=== PATIENT | male | born 1945 | race Caucasian/White ===

== ENCOUNTER 2017-10-31 10:04 | Day surgery (SDC) | payer OTHER ==
[~2017-10-31] VITALS: Ht 188 cm; Wt 72.6 kg
== END 2017-10-31 12:42 | disposition home or self-care (01) ==
LOC: ORSCSDS 10:04
PROVIDERS: Internal Medicine Gastroenterology
PROC: 0DBH8ZX Excision of Cecum, Via Natural or Artificial Opening Endoscopic, Diagnostic (ICD-10-PCS; principal; 2017-10-31 11:15)
DX: Z12.11 Encounter for screening for malignant neoplasm of colon (principal); D12.0 Benign neoplasm of cecum; K57.30 Diverticulosis of large intestine without perforation or abscess without bleeding; Z86.010 Personal history of colon polyps; F17.210 Nicotine dependence, cigarettes, uncomplicated
CPT/HCPCS: 88305; 93005; 93010; J7120

== ENCOUNTER → 2020-05-27 | Outpatient (CLI) | payer OTHER | END | disposition home or self-care (01) | LOC: LAB SHORT 11:25 → PLD 11:25 | DX: C44.311 Basal cell carcinoma of skin of nose (principal); L91.0 Hypertrophic scar | CPT/HCPCS: 88305 ==

== ENCOUNTER 2022-05-21 18:58 | Inpatient (IN) | payer OTHER ==
[~2022-05-21] VITALS: Ht 188 cm; Wt 65.0 kg
[2022-05-21 19:50] LABS: Source, Urine Clean Catch
[2022-05-21 19:56] LABS: Appearance, Urine Clear (Clear); Bilirubin, Urine Neg (Neg); Blood, Urine 2+ (Neg); Color, Urine Amber (P-Yellow); Glucose Qualitative, Urine Neg (Neg); Ketones, Urine 3+ (Neg); Leukocyte Esterase, Urine 1+ (Neg); Nitrite, Urine Pos (Neg); Protein, Urine 2+ (Neg); Urobilinogen, Urine 2+ (Normal)
[2022-05-21 20:05] LABS: Bacteria Mod /hpf; Granular Casts 0-2 /lpf (0); Hyaline Casts 0-2 /lpf (0-2); Squamous Epithelial Cells Rare /hpf (Few)
[2022-05-21 20:06] LABS: BASOPHILS ABSOLUTE AUTO 0.02 K/mm3 (0.00-0.23); BASOPHILS PERCENT AUTO 0 % (0-2); EOSINOPHILS PERCENT AUTO 0 % (0-6); Hematocrit 40.9 % (37.0-53.0); Hemoglobin 14.9 g/dL (13.5-17.5); IMMATURE GRAN ABSOLUTE AUTO 0.05 K/mm3 (0.00-0.10); IMMATURE GRAN PERCENT AUTO 0 % (0-1); LYMPHOCYTES ABSOLUTE AUTO 0.45 K/mm3 (0.84-5.20); LYMPHOCYTES PERCENT AUTO 3 % (21-46); MONOCYTES ABSOLUTE AUTO 1.23 K/mm3 (0.16-1.47); MONOCYTES PERCENT AUTO 9 % (4-13); Mean Corpuscular HGB 34.3 pg (26.0-34.0); Mean Corpuscular HGB Conc 36.4 g/dL (31.5-36.5); Mean Corpuscular Volume 94 fL (80-100); Mean Platelet Volume 8.3 fL (9.1-12.4); NEUTROPHILS PERCENT AUTO 88 % (41-73); Platelet Count 419 K/mm3 (150-400); RDW Coefficient Variation 12.2 % (11.7-14.2); Red Blood Cell Count 4.34 M/mm3 (4.30-5.90); White Blood Cell Count 14.25 K/mm3 (4.00-11.30)
[2022-05-21 20:32] LABS: Albumin, Blood 2.7 g/dL (3.4-5.0); Albumin/Globulin Ratio 0.7 (0.8-1.8); Bilirubin, Total 1.3 mg/dL (0.1-1.0); Bun/Creatinine Ratio 44.5 (12.0-20.0); Calcium, Blood 9.7 mg/dL (8.5-10.1); Creatinine, Blood 0.61 mg/dL (0.60-1.20); Potassium, Blood 4.1 mmol/L (3.5-5.5); Total Protein, Blood 6.7 g/dL (6.4-8.2)
[2022-05-21 23:26] LABS: U Amphetamine Screen Not Detected; U Barbituate Screen Not Detected; U Benzodiazapine Screen Not Detected; U Buprenorphine Screen Not Detected; U Cannabinoids Screen Not Detected; U Cocaine Screen Not Detected; U Methadone Screen Not Detected; U Methamphetamine Screen Not Detected; U Opiates Screen Not Detected; U Oxycodone Screen Not Detected; U Phencyclidine Screen Not Detected; U Propoxyphene Screen Not Detected
[2022-05-21 23:34] LABS: Influenza A, PCR NEGATIVE (NEGATIVE); Influenza B, PCR NEGATIVE (NEGATIVE); Resp Syncytial Virus, PCR NEGATIVE (NEGATIVE); SARS-Cov-2 (COVID-19) PCR, MMC NEGATIVE (NEGATIVE)
[2022-05-22 01:03] LABS: Creatine Kinase MB 18.3 ng/mL (0.0-3.6); Creatine Kinase MB Index 0.8 (0.0-4.0)
--- NOTE | 2022-05-22 01:45 | NUR ---
ADMIT NOTE: PT ARRIVED FROM THE ED VIA GURNEY AT 0139. PT WAS TRANFERED FROM ED BED TO HOSPITAL BED VIA SLIDE SHEET AT THE REQUEST OF THE DAUGHTER WHO WAS BEDSIDE AT TIME OF ARRIVAL. PT ARRIVED AxO X3, WITH SOME MILD CONFUSION. PT ARRIVED WITHOUT ANY INFUSIONS AND ON RA. PT HAD A SMALL REDDEND AREA ON THE COCCYX, A MEPILEX WAS APPLIED TO PREVENT BREAKDOWN OR FURTHER DEVELOPMENT OF A PRESSURE ULCER. TAB ALARM IN PLACE FOR SAFETY OF THE PT.
[2022-05-22 01:48] LABS: CHOL/HDL RATIO 3.1; Cholesterol 87 mg/dL (50-200); HDL Cholesterol 28 mg/dL (>39); LDL/HDL RATIO 1.7; Low Density Lipoprotein Chol 48 mg/dL (0-110); Triglycerides 53 mg/dL (30-160); Very Low Density Lipoprot Chol 10 mg/dL (6-32)
[2022-05-22 04:55] LABS: BASOPHILS ABSOLUTE AUTO 0.02 K/mm3 (0.00-0.23); BASOPHILS PERCENT AUTO 0 % (0-2); EOSINOPHILS ABSOLUTE AUTO 0.05 K/mm3 (0.00-0.68); EOSINOPHILS PERCENT AUTO 0 % (0-6); Hematocrit 37.2 % (37.0-53.0); Hemoglobin 13.3 g/dL (13.5-17.5); IMMATURE GRAN ABSOLUTE AUTO 0.04 K/mm3 (0.00-0.10); IMMATURE GRAN PERCENT AUTO 0 % (0-1); LYMPHOCYTES ABSOLUTE AUTO 0.76 K/mm3 (0.84-5.20); LYMPHOCYTES PERCENT AUTO 7 % (21-46); MONOCYTES ABSOLUTE AUTO 1.23 K/mm3 (0.16-1.47); MONOCYTES PERCENT AUTO 11 % (4-13); Mean Corpuscular HGB Conc 35.8 g/dL (31.5-36.5); Mean Corpuscular Volume 95 fL (80-100); Mean Platelet Volume 8.5 fL (9.1-12.4); NEUTROPHILS ABSOLUTE AUTO 9.15 K/mm3 (1.96-9.15); NEUTROPHILS PERCENT AUTO 81 % (41-73); Platelet Count 384 K/mm3 (150-400); RDW Coefficient Variation 12.5 % (11.7-14.2); RDW Standard Deviation 43.5 fL (35.1-46.3); Red Blood Cell Count 3.91 M/mm3 (4.30-5.90); White Blood Cell Count 11.25 K/mm3 (4.00-11.30)
[2022-05-22 05:12] LABS: Bun/Creatinine Ratio 50.1 (12.0-20.0); Calcium, Blood 9.2 mg/dL (8.5-10.1); Creatinine, Blood 0.52 mg/dL (0.60-1.20); Potassium, Blood 3.8 mmol/L (3.5-5.5)
--- NOTE | 2022-05-22 06:18 | NUR ---
SHIFT SUMMARY; PT HAD NO ACUTE MEDICAL CHANGES OVERNIGHT. PT RESTED IN BED THROUGHOUT THE NIGHT. PT IS A FALL RISK R/T ACUTE CONFUSION AND RECENT FALLS, THEREFORE A TAB ALARM WAS PLACED ON THE PT. THE PT HAD AN ACCIDENT LAST NIGHT, LINENS WERE CHANGED. THE PT IS CURRENTLY BEING INFUSED WITH NS AT 100MLS/HR. PT REMAINS ON RA AND COMTINUES TO DENY ANY PAIN. PT'S TROPONIN LEVELS ARE TRENDING DOWN. PT REMIANS AXO X3. THE PTS BED IS IN THE LOWEST POSITION WITH 3 SIDE RAILS UP, THE CALL LIGHT IS AT THE PTS BEDSIDE.
--- NOTE | 2022-05-22 11:24 | NUR ---
DAUGHTER STATES PT LEGS GO NUMB, LOSES BALANCE AND FALLS. BACK PAIN RECENT. THINKS MAY HAVE FRACTURE.
--- NOTE | 2022-05-22 13:53 | NUR ---
CALLED [facility] D/C IVF. PT DRINKING WELL.
--- NOTE | 2022-05-22 18:23 | NUR ---
PT HAS BEEN PLEASANT AND COOP TODAY. CONTINUES TO BE VERY CONFUSED ON ANY DETAILS, SUCH BIRTHDATES OF CHILDREN, PRESENT DATE, ETC. FAMILY AT BEDSIDE STATES HE IS NORMALLY QUITE SHARP. STATES THIS IS NEW. DOES PRESENT MORE CONFUSION IN EVES MORE PER DAUGHTER. RECOMMENDED HER TO VISIT WITH HIS PCP AT REGULAR VISITS. DID DO ECHO AND MRI TODAY. NO OTHER CONCERNS NOTED. BED IN LOW POSITION, CALL LITE IN REACH, CALLS APPROP
--- NOTE | 2022-05-23 04:38 | NUR ---
SHIFT SUMMARY: PT WITH SOME CONFUSION. PT COOPERATIVE OF CARE, BUT DID NOT USE THE CALL LIGHT APPRORIATELY. TAB ALARM WAS PLACED ON THE PT DUE TO THE PTS HIGH ARREGUIN FALL RISK. PT AWAKE MOST OF THE NIGHT, ENCOURAGED PT TO REST. PT WITH NO ACUTE MEDICAL CHANGES THROUGHOUT THE NIGHT. PT CURRENTLY RESTING IN BED WATCHIG TELEVISON, TAB ALARM IN PLACE, THE BED IS IN THE LOWEST POSITION AND THE CALL LIGHT IS IN THE PATIENTS LAP.
--- NOTE | 2022-05-23 17:05 | NUR ---
SUMMARY- PT A/O X3, FORGETFUL AND CONFUSED. ANXIOUS THIS AM, PULLED OFF TELE, WANTED TO GET OUT OF THE HOSPITAL. DAUGHTER HELPED TO CALM PT. DR PEDRO JEFFREY IN AM. ORDERED PRN ZANAX, MEDICATED PT X1 SEEMED HELPFUL FOR ANXIETY AND PT NAPPED BREIFLY AFTER. PT HAD CT OF CHEST FINDING LIKELY BIBASILAR PNEUMONIA. PT STARTED ON IV ABX AND PULM TOILET- FLUTTER AND I.S. INC USE IN EACH. TRYING TO OBTAIN SPUTUM SPEC. NO SPEC SO FAR. LUNGS SOUND DIM IN L BASE, NO SOB NOTED, NO COUGH. PT TOLERATING FOOD AND FLUIDS. GETS UP SBA TO BSC, VERY UNSTEADY GAIN, STOPPED WALKING TO BATHROOM RELATED TO UNSTEADY, LEAN TO LEFT AND BACKWARDS. PT IN CONT/INCONT RELATED TO URGENCY,. PAIN IN LOW BACK NOT RELEIVED BY TYLENOL THIS AM. STARTED IBUPROFEN 800MG FOR PAIN. AWAITING RESLUTS. PLAN FOR SNF LIKELY MON.
[2022-05-23 19:29] LABS: Adenovirus Not Detected (NOT DETECT); Bordetella pertussis Not Detected (NOT DETECT); Chlamydophila pneumoniae Not Detected (NOT DETECT); Coronavirus 229E Not Detected (NOT DETECT); Coronavirus HKU1 Not Detected (NOT DETECT); Coronavirus NL63 Not Detected (NOT DETECT); Coronavirus OC43 Not Detected (NOT DETECT); Human Metapneumovirus Not Detected (NOT DETECT); Human Rhinovirus/Enterovirus Not Detected (NOT DETECT); Influenza A/2009-H1 Not Detected (NOT DETECT); Influenza A/H1 Not Detected (NOT DETECT); Influenza A/H3 Not Detected (NOT DETECT); Influenza B Not Detected (NOT DETECT); Mycoplasma pneumoniae Not Detected (NOT DETECT); Parainfluenza Virus 1 Not Detected (NOT DETECT); Parainfluenza Virus 2 Not Detected (NOT DETECT); Parainfluenza Virus 3 Not Detected (NOT DETECT); Parainfluenza Virus 4 Not Detected (NOT DETECT); Respiratory Syncytial Virus Not Detected (NOT DETECT); SARS-Cov-2 (COVID-19), BioFire Not Detected (NOT DETECT)
[2022-05-24 04:23] LABS: BASOPHILS ABSOLUTE AUTO 0.02 K/mm3 (0.00-0.23); BASOPHILS PERCENT AUTO 0 % (0-2); EOSINOPHILS PERCENT AUTO 1 % (0-6); Hematocrit 34.1 % (37.0-53.0); Hemoglobin 12.4 g/dL (13.5-17.5); IMMATURE GRAN ABSOLUTE AUTO 0.05 K/mm3 (0.00-0.10); IMMATURE GRAN PERCENT AUTO 1 % (0-1); LYMPHOCYTES ABSOLUTE AUTO 0.75 K/mm3 (0.84-5.20); LYMPHOCYTES PERCENT AUTO 8 % (21-46); MONOCYTES ABSOLUTE AUTO 1.12 K/mm3 (0.16-1.47); MONOCYTES PERCENT AUTO 12 % (4-13); Mean Corpuscular HGB 34.1 pg (26.0-34.0); Mean Corpuscular HGB Conc 36.4 g/dL (31.5-36.5); Mean Corpuscular Volume 94 fL (80-100); Mean Platelet Volume 8.8 fL (9.1-12.4); NEUTROPHILS ABSOLUTE AUTO 7.34 K/mm3 (1.96-9.15); NEUTROPHILS PERCENT AUTO 78 % (41-73); Platelet Count 349 K/mm3 (150-400); RDW Coefficient Variation 12.1 % (11.7-14.2); RDW Standard Deviation 42.3 fL (35.1-46.3); Red Blood Cell Count 3.64 M/mm3 (4.30-5.90); White Blood Cell Count 9.38 K/mm3 (4.00-11.30)
[2022-05-24 04:47] LABS: Albumin, Blood 2.1 g/dL (3.4-5.0); Albumin/Globulin Ratio 0.7 (0.8-1.8); Bilirubin, Total 0.7 mg/dL (0.1-1.0); Bun/Creatinine Ratio 20.9 (12.0-20.0); C-REACTIVE PROTEIN, EXT RANGE 8.75 mg/dL (0.000-0.300); Calcium, Blood 8.7 mg/dL (8.5-10.1); Creatinine, Blood 0.48 mg/dL (0.60-1.20); Potassium, Blood 3.8 mmol/L (3.5-5.5); Total Protein, Blood 5.1 g/dL (6.4-8.2)
--- NOTE | 2022-05-24 06:39 | NUR ---
SHIFT SUMMARY; PT IS AXO X3, FORGETFUL WITH INCREASED CONFUSION. TAB ALARM REMAINS IN PLACE. ATTEMPTED TO AMBULATE PT TO BATHROOM WITH ABRASIVE BAND WINDER, BUT THE PTS GAIT IS VERY UNSTEADY SO WE USED THE BEDSIDE COMMODE INSTEAD. PTS LUNGS REMAIN DIMINISHED. PT SLEPT OFF AND ON THROUGHOUT THE NIGHT. PT CURRENTLY WATCHING TV IN BED, THE BED IS IN THE LOWEST POSITION AND THE CALL LIGHT IS IN THE PTS LAP. PT WITH NO ACUTE MEDICAL CHANGES THROUGHOUT THE NIGHT.
--- NOTE | 2022-05-24 17:06 | NUR ---
SHIFT SUMMARY PT A/O X2-3 WITH INCREASED CONFUSION MID-SHIFT. PT UP TO THE BATHROOM OFTEN WITH 1 ASSIST W/FWW/GB TO VOID. PT ON TAB ALARM DUE TO CONFUSION AND IMPULSIVENESS. VSS.
--- NOTE | 2022-05-25 03:58 | NUR ---
SHIFT SUMMARY: Pt A/Ox1 this shift and not call light appropriate. Bed and chair alarms utilized for pt safety. Overnight pt had increased confusion and anxiety. Pt was convinced he was at latter-day and needed to leave. Pt would frequently get up without calling. PRN xanax given to help anxiety. Pt was having increased urination, up to 3-5x per hour when awake. Pt denied pain, SOB, nausea, dizziness.
--- NOTE | 2022-05-25 06:17 | NUR ---
FALL around 0600 this morning pt was found on floor from chair after chair alarm had signaled. Pt was found sitting on buttocks. When asked if he hit his head he stated "no." Neuros remain unchanged from earlier in the night. VSS wnl. Charge nurse and notified of fall. earlier in the shift fiction and nonfiction writer prose had pushed for a sitter as this pt was constatnly getting up without help despite all fall interventions being in use (including 3 side rails, bed/chair alarms, non-slip socks, constant rounding.). fiction and nonfiction writer prose was told there were no staff to sit with patient.
[2022-05-25 06:55] LABS: BASOPHILS ABSOLUTE AUTO 0.02 K/mm3 (0.00-0.23); BASOPHILS PERCENT AUTO 0 % (0-2); EOSINOPHILS ABSOLUTE AUTO 0.01 K/mm3 (0.00-0.68); EOSINOPHILS PERCENT AUTO 0 % (0-6); Hematocrit 41.5 % (37.0-53.0); Hemoglobin 14.5 g/dL (13.5-17.5); IMMATURE GRAN ABSOLUTE AUTO 0.05 K/mm3 (0.00-0.10); IMMATURE GRAN PERCENT AUTO 0 % (0-1); LYMPHOCYTES PERCENT AUTO 4 % (21-46); MONOCYTES ABSOLUTE AUTO 1.31 K/mm3 (0.16-1.47); MONOCYTES PERCENT AUTO 12 % (4-13); Mean Corpuscular HGB 33.3 pg (26.0-34.0); Mean Corpuscular HGB Conc 34.9 g/dL (31.5-36.5); Mean Corpuscular Volume 95 fL (80-100); Mean Platelet Volume 8.6 fL (9.1-12.4); NEUTROPHILS ABSOLUTE AUTO 9.52 K/mm3 (1.96-9.15); NEUTROPHILS PERCENT AUTO 83 % (41-73); Platelet Count 369 K/mm3 (150-400); RDW Coefficient Variation 12.3 % (11.7-14.2); RDW Standard Deviation 43.5 fL (35.1-46.3); Red Blood Cell Count 4.35 M/mm3 (4.30-5.90); White Blood Cell Count 11.41 K/mm3 (4.00-11.30)
[2022-05-25 07:17] LABS: Albumin, Blood 2.4 g/dL (3.4-5.0); Albumin/Globulin Ratio 0.6 (0.8-1.8); Bilirubin, Total 0.8 mg/dL (0.1-1.0); Bun/Creatinine Ratio 16.9 (12.0-20.0); C-REACTIVE PROTEIN, EXT RANGE 13.7 mg/dL (0.000-0.300); Calcium, Blood 9.2 mg/dL (8.5-10.1); Creatinine, Blood 0.53 mg/dL (0.60-1.20); Globulin, Blood 3.7 g/dL (2.2-4.0); Total Protein, Blood 6.1 g/dL (6.4-8.2)
[2022-05-25 14:00] LABS: Free Thyroxine 1.57 ng/dL (0.70-1.60); Thyroid Stimulating Hormone 1.44 uIU/mL (0.360-4.800)
--- NOTE | 2022-05-25 18:14 | NUR ---
SHIFT SUMMARY PT CONFUSED LAST NIGHT AND THROUGH THE MORNING. MRI DONE ON HEAD. PT'S MENTATION SOMEWHAT IMPROVED DURING THE MIDDLE OF THE SHIFT. DAUGHTER AT THE BEDSIDE IN ORDER TO HELP KEEP PATIENT ORIENTED AND TO PREVENT FALLS. VSS.
--- NOTE | 2022-05-26 04:25 | NUR ---
SUMMARY NO NEW ISSUES NOTED. PT HAS BEEN SLEEPING FOR MOST OF SHIFT. PT HAS BEEN CALLING APPROPIATELY FOR HELP WITH URINAL. PT CURRENTLY SLEEPING IN DISTRESS. CALL LIGHT IN REACH AND BED ALARM ON.
[2022-05-26 05:24] LABS: BASOPHILS ABSOLUTE AUTO 0.01 K/mm3 (0.00-0.23); BASOPHILS PERCENT AUTO 0 % (0-2); EOSINOPHILS ABSOLUTE AUTO 0.04 K/mm3 (0.00-0.68); EOSINOPHILS PERCENT AUTO 0 % (0-6); Hematocrit 40.9 % (37.0-53.0); Hemoglobin 14.2 g/dL (13.5-17.5); IMMATURE GRAN ABSOLUTE AUTO 0.04 K/mm3 (0.00-0.10); IMMATURE GRAN PERCENT AUTO 0 % (0-1); LYMPHOCYTES ABSOLUTE AUTO 0.57 K/mm3 (0.84-5.20); LYMPHOCYTES PERCENT AUTO 5 % (21-46); MONOCYTES ABSOLUTE AUTO 1.44 K/mm3 (0.16-1.47); MONOCYTES PERCENT AUTO 13 % (4-13); Mean Corpuscular HGB 33.3 pg (26.0-34.0); Mean Corpuscular HGB Conc 34.7 g/dL (31.5-36.5); Mean Corpuscular Volume 96 fL (80-100); Mean Platelet Volume 8.6 fL (9.1-12.4); NEUTROPHILS PERCENT AUTO 81 % (41-73); Platelet Count 393 K/mm3 (150-400); RDW Coefficient Variation 12.6 % (11.7-14.2); RDW Standard Deviation 44.8 fL (35.1-46.3); Red Blood Cell Count 4.27 M/mm3 (4.30-5.90)
[2022-05-26 05:39] LABS: Albumin, Blood 2.2 g/dL (3.4-5.0); Albumin/Globulin Ratio 0.6 (0.8-1.8); Bilirubin, Total 0.7 mg/dL (0.1-1.0); Bun/Creatinine Ratio 25.1 (12.0-20.0); Calcium, Blood 9.3 mg/dL (8.5-10.1); Creatinine, Blood 0.52 mg/dL (0.60-1.20); Globulin, Blood 3.9 g/dL (2.2-4.0); Potassium, Blood 4.2 mmol/L (3.5-5.5); Total Protein, Blood 6.1 g/dL (6.4-8.2)
[2022-05-26 16:46] LABS: Influenza A, PCR NEGATIVE (NEGATIVE); Influenza B, PCR NEGATIVE (NEGATIVE); Resp Syncytial Virus, PCR NEGATIVE (NEGATIVE); SARS-Cov-2 (COVID-19) PCR, MMC NEGATIVE (NEGATIVE)
--- NOTE | 2022-05-26 17:53 | NUR ---
SHIFT SUMMARY PT'S MENTATION SEEMS TO HAVE IMPROVED SOME. PT USING CALL LIGHT MORE FOR ASSISTANCE. STILL A/O X2 BUT PLEASANT/COOPERATIVE WITH CARE. PT TO DC TO SNF WHEN A BED IS AVAILABLE. 1 ASSIST W/FWW/GB TO THE BATHROOM. VSS.
[2022-05-27 05:12] LABS: BASOPHILS ABSOLUTE AUTO 0.02 K/mm3 (0.00-0.23); BASOPHILS PERCENT AUTO 0 % (0-2); EOSINOPHILS ABSOLUTE AUTO 0.04 K/mm3 (0.00-0.68); EOSINOPHILS PERCENT AUTO 0 % (0-6); Hematocrit 34.6 % (37.0-53.0); Hemoglobin 12.1 g/dL (13.5-17.5); IMMATURE GRAN ABSOLUTE AUTO 0.05 K/mm3 (0.00-0.10); IMMATURE GRAN PERCENT AUTO 0 % (0-1); LYMPHOCYTES ABSOLUTE AUTO 0.63 K/mm3 (0.84-5.20); LYMPHOCYTES PERCENT AUTO 6 % (21-46); MONOCYTES PERCENT AUTO 12 % (4-13); Mean Corpuscular HGB 33.1 pg (26.0-34.0); Mean Corpuscular Volume 95 fL (80-100); Mean Platelet Volume 8.8 fL (9.1-12.4); NEUTROPHILS PERCENT AUTO 82 % (41-73); Platelet Count 366 K/mm3 (150-400); RDW Coefficient Variation 12.8 % (11.7-14.2); RDW Standard Deviation 44.7 fL (35.1-46.3); Red Blood Cell Count 3.66 M/mm3 (4.30-5.90); White Blood Cell Count 11.14 K/mm3 (4.00-11.30)
[2022-05-27 05:36] LABS: Albumin/Globulin Ratio 0.6 (0.8-1.8); Bilirubin, Total 0.6 mg/dL (0.1-1.0); Bun/Creatinine Ratio 31.3 (12.0-20.0); Calcium, Blood 8.5 mg/dL (8.5-10.1); Creatinine, Blood 0.45 mg/dL (0.60-1.20); Globulin, Blood 3.3 g/dL (2.2-4.0); Total Protein, Blood 5.3 g/dL (6.4-8.2)
[2022-05-27] MEDS ORDERED: Acetaminophen325 M1 PO (07:32)
[2022-05-27] MEDS ORDERED: ALBU2.5V5 INH (07:32)
[2022-05-27] MEDS ORDERED: FOLI1 PO (07:33)
[2022-05-27] MEDS ORDERED: ALPR.25 PO (07:33)
[2022-05-27] MEDS ORDERED: GUAI600T33 PO (07:34)
[2022-05-27] MEDS ORDERED: IPRAT-ALBUT 0.5-3 ML INH (07:35)
[2022-05-27] MEDS ORDERED: IBUP400 PO (07:35)
[2022-05-27] MEDS ORDERED: OMEP20ER PO (07:36)
[2022-05-27] MEDS ORDERED: LEVFLO500 PO (07:36)
[2022-05-27] MEDS ORDERED: Nicoderm Cq1 EAC1 TOP (07:36)
[2022-05-27] MEDS ORDERED: VISBIOME 112.51 EACH PO (07:37)
--- NOTE | 2022-05-27 07:45 | NUR ---
Shift Summary Alert and oriented x2. VSS. Does not use call light. Had hx of fall x 2 nights ago. Pleasantly confused. Bed and chair alarm on. Assist x 1 with FWW to bathroom.
[2022-05-27 17:27] LABS: Influenza A, PCR NEGATIVE (NEGATIVE); Influenza B, PCR NEGATIVE (NEGATIVE); Resp Syncytial Virus, PCR NEGATIVE (NEGATIVE); SARS-Cov-2 (COVID-19) PCR, MMC NEGATIVE (NEGATIVE)
--- NOTE | 2022-05-27 18:22 | NUR ---
SHIFT SUMMARY PT IN & OUT OF CONFUSION WITH MOMENTS OF CLEAR LUCIDITY. IS PLEASANT, COOPERATIVE & EASILY REDIRECTED. RE-ORIENTS WELL. PT WEAK WHEN UP, USES WALKER AND REQUIRES 1 PERSON ASSIST FOR RESTROOM USE. PT HAS URINARY FREQUENCY & URGENCY. PARTICIPATED WITH OT TODAY. VSS. APPETITE GOOD. PT HAS BEEN ACCEPTED AT [facility] WITH A SCHEDULED HOSTESS HOST TIME OF 0930 TOMORROW MORNING VIA W/C. COVID TEST HAS BEEN DONE.
[2022-05-27] MEDS ORDERED: MEMA5TAB PO (21:43)
[2022-05-27] MEDS ORDERED: QUET25 PO (21:43)
--- NOTE | 2022-05-28 04:52 | NUR ---
SHIFT SUMMARY PLEASANTLY CONFUSED. ALERT AND ORIENTED X 1-2. VSS. SLEEPING OFF AND ON IN BETWEEN CARE. NEEDS ASSISTANCE WITH STANDING UP TO USE FWW TO BATHROOM. PT TO BE DISCHARGED IN THE AM TO [facility].
[2022-05-28 05:03] LABS: BASOPHILS ABSOLUTE AUTO 0.01 K/mm3 (0.00-0.23); BASOPHILS PERCENT AUTO 0 % (0-2); EOSINOPHILS ABSOLUTE AUTO 0.04 K/mm3 (0.00-0.68); EOSINOPHILS PERCENT AUTO 0 % (0-6); Hematocrit 37.1 % (37.0-53.0); Hemoglobin 13.4 g/dL (13.5-17.5); IMMATURE GRAN ABSOLUTE AUTO 0.04 K/mm3 (0.00-0.10); IMMATURE GRAN PERCENT AUTO 0 % (0-1); LYMPHOCYTES ABSOLUTE AUTO 0.63 K/mm3 (0.84-5.20); LYMPHOCYTES PERCENT AUTO 7 % (21-46); MONOCYTES ABSOLUTE AUTO 1.27 K/mm3 (0.16-1.47); MONOCYTES PERCENT AUTO 14 % (4-13); Mean Corpuscular HGB 33.7 pg (26.0-34.0); Mean Corpuscular HGB Conc 36.1 g/dL (31.5-36.5); Mean Corpuscular Volume 93 fL (80-100); Mean Platelet Volume 8.6 fL (9.1-12.4); NEUTROPHILS ABSOLUTE AUTO 7.28 K/mm3 (1.96-9.15); NEUTROPHILS PERCENT AUTO 79 % (41-73); Platelet Count 397 K/mm3 (150-400); RDW Coefficient Variation 12.6 % (11.7-14.2); RDW Standard Deviation 43.7 fL (35.1-46.3); Red Blood Cell Count 3.98 M/mm3 (4.30-5.90); White Blood Cell Count 9.27 K/mm3 (4.00-11.30)
[2022-05-28 05:33] LABS: Albumin, Blood 2.2 g/dL (3.4-5.0); Albumin/Globulin Ratio 0.6 (0.8-1.8); Bilirubin, Total 0.8 mg/dL (0.1-1.0); Bun/Creatinine Ratio 32.1 (12.0-20.0); Calcium, Blood 8.6 mg/dL (8.5-10.1); Creatinine, Blood 0.41 mg/dL (0.60-1.20); Globulin, Blood 3.8 g/dL (2.2-4.0); Potassium, Blood 4.1 mmol/L (3.5-5.5)
--- NOTE | 2022-05-28 09:24 | NUR ---
PT TO BE DISCHARGED TO [facility] THIS MORNING, REPORT CALLED TO HUSSEIN LUKE, QUESTIONS/CONCERNS ANSWERED. WILL MONITOR UNTIL PT DISCHARGED
--- NOTE | 2022-05-28 09:38 | NUR ---
DISCHARGE [facility] TRANSPORTING PT VIA W/C VAN. PT DRESSED AND ASSISTED INTO W/C. PT'S DAUGHTER IN ROOM, ANSWERED QUESTIONS AND CONCERS. PT DISCHARGED AT THIS TIME.
== END 2022-05-28 09:38 | DRG 689 ==
LOC: ER 18:58 → MEDS 19:00 → ER 05-22 01:32 → MEDS 05-22 01:32
PROVIDERS: Emergency Medicine; Family Medicine; Hospitalist; Physician Assistant; ADMIT Family Medicine
DX: N39.0 Urinary tract infection, site not specified (principal); J69.0 Pneumonitis due to inhalation of food and vomit; G93.40 Encephalopathy, unspecified; E87.1 Hypo-osmolality and hyponatremia; K52.1 Toxic gastroenteritis and colitis; M48.56XA Collapsed vertebra, not elsewhere classified, lumbar region, initial encounter for fracture; M62.82 Rhabdomyolysis; R79.89 Other specified abnormal findings of blood chemistry; Z20.822 Contact with and (suspected) exposure to COVID-19; Z71.6 Tobacco abuse counseling; Z66 Do not resuscitate; F03.90 Unspecified dementia, unspecified severity, without behavioral disturbance, psychotic disturbance, mood disturbance, and anxiety; Z88.8 Allergy status to other drugs, medicaments and biological substances; R29.6 Repeated falls; N40.0 Benign prostatic hyperplasia without lower urinary tract symptoms; Z98.890 Other specified postprocedural states; F17.210 Nicotine dependence, cigarettes, uncomplicated; D75.838 Other thrombocytosis; D64.9 Anemia, unspecified
CPT/HCPCS: 0202U; 0241U; 36415; 70450; 70551; 71260; 72131; 72148; 80048; 80053; 80061; 81001; 82550; 82553; 82607; 82746; 83880; 83930; 84145; 84439; 84443; 84484; 85025; 85379; 85651; 86140; 87086; 92610; 93005; 93010; 93306; 94640; 94664; 94760; 96361; 96365; 96372; 96376; 97110; 97116; 97129; 97130; 97161; 97165; 97530; 97535; 99285-25; A9270; G0378; J0696; J1650; J1956; J7030; J7040; Q9967

== ENCOUNTER → 2022-06-04 | Outpatient (CLI) | payer OTHER ==
[~2022-06-04] MED LIST: ALBU2.5V5 INH; ALPR.25 PO; Acetaminophen325 M1 PO; CIPR500 PO; Demeclocycline300 MG PO; FOLI1 PO; GUAI600T33 PO; IBUP400 PO; IPRAT-ALBUT 0.5-3 ML INH; LEVFLO500 PO; LINE600 PO; MEMA5TAB PO; Nicoderm Cq1 EAC1 TOP; OMEP20ER PO; QUET25 PO; SODCHL1 PO; VISBIOME 112.51 EACH PO
== END | disposition home or self-care (01) ==
LOC: EDSTATUS 08:44 → LAB RH 20:50
DX: N39.0 Urinary tract infection, site not specified (principal)
CPT/HCPCS: 87077; 87086; 87186

== ENCOUNTER 2022-06-08 12:52 | Inpatient (IN) | payer OTHER ==
[~2022-06-08] VITALS: Ht 188 cm; Wt 62.5 kg
[~2022-06-08 12:52] MED LIST changes: -CIPR500 PO; -Demeclocycline300 MG PO; -LINE600 PO; -SODCHL1 PO
[2022-06-08 17:20] LABS: Bun/Creatinine Ratio 27.6 (12.0-20.0); Calcium, Blood 9.4 mg/dL (8.5-10.1); Creatinine, Blood 0.44 mg/dL (0.60-1.20); Potassium, Blood 4.3 mmol/L (3.5-5.5)
--- NOTE | 2022-06-08 18:20 | NUR ---
ADMISSION: PT IS DIRECT ADMIT BY [facility]ERGRD[facility], ARRIVES FROM [facility], ACCOMPANIED BY DAUGHTER. PT ARRIVES ALERT, ORIENTED TO SELF, LOCATION, SITUATION. PT ANSWERS QUESTIONS APPROPRIATELY, COOPERATIVE WITH CARE. O2 SATS >92% ON RA, PT DENIES SOB. SR W/PVC AND ST ELEVATION ON MONITOR, RATE 70s. WHEN COMPARED TO EKG FROM RECENT ADMISSION, NO CHANGE IS NOTED IN ST ELEVATION, PT DENIES CP. NEPHROLOGY CONSULT HAS BEEN CALLED IN. PT WEAK WHEN STANDING FOR URINAL USE, 2 PERSON ASSIST, URINE SAMPLE COLLECTED AND SENT TO LAB. CHEST XRAY COMPLETED IN ROOM, RESULTS PENDING. AT THIS TIME, PT RESTING QUIETLY IN ROOM WITH [facility]IN[facility]RAY AND FAMILY AT BEDSIDE. TELEPHONE NOTIFICATION TO PROVIDER RE: LAB RESULTS, AWAITING RESPONSE FOR FURTHER PLAN OF CARE. SODIUM LEVELS THIS AM 119, SODIUM LEVELS THIS PM 120. WILL CONTINUE TO MONITOR AND TREAT ACCORDINGLY UNTIL CHANGE OF SHIFT.
--- NOTE | 2022-06-08 21:00 | NUR ---
Assumed care. Report received from dayshift RN. Pt in bed, on room air, alert and oriented. Daughters at bedside during report. No acute needs, VS stable. Continue to monitor.
[2022-06-09 00:29] LABS: BASOPHILS ABSOLUTE AUTO 0.03 K/mm3 (0.00-0.23); BASOPHILS PERCENT AUTO 0 % (0-2); EOSINOPHILS ABSOLUTE AUTO 0.08 K/mm3 (0.00-0.68); EOSINOPHILS PERCENT AUTO 1 % (0-6); Hematocrit 35.4 % (37.0-53.0); Hemoglobin 13.1 g/dL (13.5-17.5); IMMATURE GRAN ABSOLUTE AUTO 0.03 K/mm3 (0.00-0.10); IMMATURE GRAN PERCENT AUTO 0 % (0-1); LYMPHOCYTES ABSOLUTE AUTO 0.88 K/mm3 (0.84-5.20); LYMPHOCYTES PERCENT AUTO 10 % (21-46); MONOCYTES ABSOLUTE AUTO 1.27 K/mm3 (0.16-1.47); MONOCYTES PERCENT AUTO 15 % (4-13); Mean Corpuscular HGB 33.3 pg (26.0-34.0); Mean Corpuscular Volume 90 fL (80-100); Mean Platelet Volume 8.1 fL (9.1-12.4); NEUTROPHILS ABSOLUTE AUTO 6.34 K/mm3 (1.96-9.15); NEUTROPHILS PERCENT AUTO 74 % (41-73); Platelet Count 373 K/mm3 (150-400); RDW Standard Deviation 43.4 fL (35.1-46.3); Red Blood Cell Count 3.93 M/mm3 (4.30-5.90); White Blood Cell Count 8.63 K/mm3 (4.00-11.30)
[2022-06-09 00:47] LABS: Albumin, Blood 2.4 g/dL (3.4-5.0); Albumin/Globulin Ratio 0.6 (0.8-1.8); Bilirubin, Total 0.5 mg/dL (0.1-1.0); Bun/Creatinine Ratio 27.8 (12.0-20.0); Calcium, Blood 8.7 mg/dL (8.5-10.1); Creatinine, Blood 0.47 mg/dL (0.60-1.20); Globulin, Blood 3.9 g/dL (2.2-4.0); Magnesium, Blood 1.8 mg/dL (1.6-2.4); Potassium, Blood 4.3 mmol/L (3.5-5.5); Total Protein, Blood 6.3 g/dL (6.4-8.2)
--- NOTE | 2022-06-09 06:05 | NUR ---
Pt rested in bed throughout shift. Pt confused at times but able to communicate needs easily. Pt incontinent of urine. NS infusing at 100 ml/hr. No acute events overnight. See assessment for further details. Will continue to monitor and report off to dayshift RN.
[2022-06-09 09:49] LABS: Bun/Creatinine Ratio 19.8 (12.0-20.0); Calcium, Blood 9.2 mg/dL (8.5-10.1); Creatinine, Blood 0.51 mg/dL (0.60-1.20); Potassium, Blood 4.2 mmol/L (3.5-5.5)
[2022-06-09 17:20] LABS: Bun/Creatinine Ratio 42.6 (12.0-20.0); Creatinine, Blood 0.47 mg/dL (0.60-1.20); Potassium, Blood 4.3 mmol/L (3.5-5.5)
--- NOTE | 2022-06-09 17:58 | NUR ---
SHIFT SUMMARY PT IS ALERT TO SELF AND DATE/TIME ONLY. HE IS CONFUSED. THIS AM, PT WAS USING CALL LIGHT IN ATTEMPT TO USE BEDSIDE URINAL BUT WOULD ULTIMATELY HAVE EPISODES OF INCONTINENCE. THIS AFTERNOON HE HAS BEEN INCONTINENT AND HAS NOT USED CALL LIGHT FOR ASSISTANCE TO VOID. FREQUENT BRIEF CHECKS TO KEEP SKIN DRY/CLEAN. SPO2 HAS BEEN >95% VIA ROOM AIR, HR AND BP STABLE. HE HAS DENIED FEELINGS OF PAIN/NAUSEA. NO COUGH NOTED. PT HAS BEEN UP TO CHAIR FOR BREAKFAST AND DINNER W/ USE OF CHAIR ALARM, BED ALARM IN USE WHEN IN BED. PT'S DAUGHTER WAS AT BEDSIDE THIS AFTERNOON. RN FROM [facility] AT BEDSIDE THIS AM TO ASSESS PT. HE IS ON A 1500ML FLUID RESTRICTION STARTING TODAY AND HAS TOLERATED IT WELL. NO OTHER ACUTE CHANGES NOTED, WILL CONTINUE TO MONITOR UNTIL REPORT GIVEN. CALL JC IN REACH, BED ALARM ON.
[2022-06-10 01:44] LABS: Bun/Creatinine Ratio 30.8 (12.0-20.0); Calcium, Blood 8.9 mg/dL (8.5-10.1); Creatinine, Blood 0.52 mg/dL (0.60-1.20); Potassium, Blood 4.2 mmol/L (3.5-5.5)
--- NOTE | 2022-06-10 06:45 | NUR ---
SHIFT SUMMARY: this author assumed patient cares from [id number]. Generally no acute events overnight, patient slept for most of the shift until about 0500. NEURO: initially very somnolent; unable to get patient to wake up and take PO medications prior to HS. He has been more engaged and alert since waking up to use urinal, etc. He is confused, but oriented to self, place and time. Does not seem oriented to situation. Afebrile. CARDS: SR on monitor with BBB. Rates in the 60s. BP has been WDL. No edema appreciated. RESP: WDL on RA. MSK: has not been out of bed on this shift, but able to shift self in bed and assist with bed change, repositioning. Per day shift, is unsteady on his feet. INTEG: no skin concerns noted. GI/: using urinal when awake. He did have one episode of urinary incontinence overnight. No BM reported to this author by staff. On fluid restrictions, cardiac and gluten-free diet. ENDO: n/a
[2022-06-10 09:39] LABS: Bun/Creatinine Ratio 37.1 (12.0-20.0); Calcium, Blood 9.7 mg/dL (8.5-10.1); Creatinine, Blood 0.43 mg/dL (0.60-1.20)
--- NOTE | 2022-06-10 16:15 | NUR ---
SHIFT SUMMARY PT IS ALERT AND ORIENTED TO SELF, DATE/TIME. HE IS CONFUSED BUT HAS BEEN ABLE TO USE CALL LIGHT AND MAKE HIS NEEDS KNOW. HE ALSO FOLLOWS COMMANDS AND IS PLEASANT AND COOPERATIVE W/ CARE. SPO2 93-95% VIA ROOM AIR. HE DENIES FEELING SHORT OF BREATH. HR AND BP STABLE. TELE MONITORING IN PLACE. HE HAS DENIED PAIN INCLUDING CHEST PAIN/PRESSURE. HE REQUESTED TO STAY IN BED FOR MEALS BUT HAS BEEN UP AT EDGE OF BED TO USE BEDSIDE URINAL. PHYSICAL AND OCCUPATIONAL THERAPISTS EVALUATED PT TODAY. HE HAS MOSTLY BEEN INCONTINENT DURING SHIFT BUT HAS CALLED TO ATTEMPT TO USE BEDSIDE URINAL. AT 1630, PT REPORTED DISCOMFORT ON BOTTOM AREA DUE TO BEING SEDENTARY, PILLOWS TUCKED UNDER HIPS. WILL ALSO CONTINUE TO ENOURAGE MOBILITY APPROPRIATE. HIS DAUGHTER IS CURRENTLY AT THE BEDSIDE. CALL LIGHT IS IN REACH, BED ALARM ON. WILL CONTINUE TO MONITOR UNTIL REPORT GIVEN.
--- NOTE | 2022-06-10 17:58 | NUR ---
MEDICATION NOTE PHARMACY REQUEST SHEET FOR URE-NA PLACED APPROX. 1700. MEDICATION NOT RECIEVED OF YET.
--- NOTE | 2022-06-11 04:49 | NUR ---
END OF NURSING SHIFT NEURO: A&OX2, SELF AND PLACE. NO COMPLAINTS OF NUMBNESS/TINGLING. FULL SENSATION IN ALL FOUR EXTREMITIES. CARDIAC: NO COMPLAINTS OF CHEST PAIN. HR 50S-70S, BBB WITH OCCASIONAL PVCs. SBP 110-140. RESP: RA. NO COMPLAINT OF SOB/DYSPNEA OR COUGH. APPRECIATED CLEAR LUNG SOUNDS BILATERALLY. GI/: FREQUENCY AND INCONTINENCE WITH MULTIPLE BRIEF CHANGES. OCCASIONALLY USES URINAL. BOWEL SOUNDS NORMOACTIVE. NO PAIN TO ABDOMEN WITH PALPATION. NO BOWEL MOVEMENT OVERNIGHT. MUSCULOSKELETAL: GENERALIZED WEAKNESS. STOOD UP MULTIPLE TIMES WITH ONE ASSIST. USE GAIT BELT AND FWW FOR MOVEMENT, VERY UNSTEADY GAIT. PSYCHOSOCIAL: SLEPT ON AND OFF THROUGHOUT NIGHT. GENERAL CONFUSION. REQUIRED CONVINCING TO TAKE EVENING MEDICATIONS
[2022-06-11 11:21] LABS: Bun/Creatinine Ratio 32.8 (12.0-20.0); Calcium, Blood 9.3 mg/dL (8.5-10.1); Creatinine, Blood 0.46 mg/dL (0.60-1.20); Potassium, Blood 3.6 mmol/L (3.5-5.5)
--- NOTE | 2022-06-11 17:54 | NUR ---
SHIFT SUMMARY; ASSSUMED CARE AT 0700. A/A/OX2 DURING SHIFT, POSSIBLE DEMENTIA PER FAMILY. CONFUSED AT TIMES BUT DIRECTABLE. VSS, USES URINAL WITH ASSISTANCE. INCONTINANT AT TIMES, STANDS WITH ASSIST. NO ACUTE MEDICAL CHANGES, WILL CONTINUE TO MONITOR AND TREAT UNTIL CHANGE OF SHIFT.
[2022-06-12 04:39] LABS: Bun/Creatinine Ratio 36.5 (12.0-20.0); Calcium, Blood 9.7 mg/dL (8.5-10.1); Creatinine, Blood 0.52 mg/dL (0.60-1.20); Potassium, Blood 4.1 mmol/L (3.5-5.5)
--- NOTE | 2022-06-12 06:49 | NUR ---
RESEARCH DIRECTOR SUMMARY ASSUMED CARE OF PATIENT AT 1900. PT IS ALERT AND ORIENTED X2, CAN ANSWER HIS NAME, , AND THE YEAR. UNSURE OF WHERE HE IS. EASILY REORIENTED. PT IS CONTINENT/INCONTINENT AND ATTEMPTING TO USE URINAL ON HIS OWN BUT SOILS THE LINENS WITHOUT ASSISTANCE. PT APPEARS TO URINATE BEFORE STAFF IS ABLE TO ASSIST SO ATTENDS IN PLACE. HE IS UNSTEADY ON HIS FEET AT TIMES BUT IS A ONE PERSON ASSIST WITH GB AND FRONT WHEEL WALKER. PT IS VERY PLEASANT AND COOPERATIVE. HE HAS BEEN SINUS IN THE 60S ON TELE THROUGHOUT THE SHIFT. VITAL SIGNS HAVE BEEN STABLE. PT IS ON A 1500 ML FLUID RESTRICTION, BUT IS FORGETFUL OF THIS. BED AND CHAIR ALARM IN PLACE DUE TO FORGETFULNESS BUT PT USING CALL LIGHT APPROPRIATELY.
--- NOTE | 2022-06-12 18:04 | NUR ---
SHIFT SUMMARY; ASSUMED CARE AT 0700. FREQUENTLY CONFUSED DURING SHIFT BUT REDIRECTABLE. PLEASANT AND COOPERATIVE WITH CARE. VSS, MEDS PER EMAR. CONDOM CATH PLACED TODAY, TOLERATING WELL. NO ACUTE MEDICAL CHANGES DURING SHIFT. WILL CONTINUE TO MONITOR AND TREAT UNTIL CHANGE OF SHIFT.
--- NOTE | 2022-06-12 20:00 | NUR ---
ASSUMED CARE ASSUMED CARE AT 1900. PT ALERT TO SELF AND ANSWERING QUESTIONS. PT CAN STATE NAME AND BIRTHDAY. DOES NOT KNOW WHERE HE IS, DATE, OR YEAR. PT DROWSY AND STATES 'HE WANTS TO SLEEP'. SR 60-70'S. VSS. CONDOM CATH IN PLACE AND DRAINING TO GRAVITY.
--- NOTE | 2022-06-13 06:06 | NUR ---
SHIFT SUMMARY NO ACUTE EVENTS OVERNIGHT. VSS. PT CONFUSED AT TIMES, EASILY REDIRECTABLE. USES CALL LIGHT AT TIMES. BED ALARM IN PLACE, BUT PT DID NOT TRY AND GET UP THIS SHIFT. CONDOM CATH FELL OFF THIS AM. BRIEF APPLIED. APPROX 3CM EXCORIATION/SKIN TEAR FOUND ON R BUTTOCK. SURROUNDING AREA RED BUT BLANCHABLE.
[2022-06-13 10:18] LABS: Bun/Creatinine Ratio 30.8 (12.0-20.0); Calcium, Blood 9.6 mg/dL (8.5-10.1); Creatinine, Blood 0.59 mg/dL (0.60-1.20); Potassium, Blood 3.9 mmol/L (3.5-5.5)
--- NOTE | 2022-06-13 18:04 | NUR ---
SHIFT SUMMARY; ASSUMED CARE AT 0700. A/A/OX2 WITH INTERMITANT CONFUSION. REPOSITIONS SELF ON GURNEY NEEDED. COCCYX MEPILEX IN PLACE. MEDS PER EMAR. 1500ML FLUID RESTRICTION. VSS, NO ACUTE MEDICAL CHANGES DURING SHIFT. WILL CONTINUE TO MONITOR AND TREAT UNTIL CHANGE OF SHIFT.
--- NOTE | 2022-06-14 05:39 | NUR ---
SHIFT SUMMARY PATIENT ALERT, ORIENTED x2, PLEASANT AND COOPERATIVE WITH CARE. REQUIRING FREQUENT REMINDERS THAT HE IS IN THE HOSPITAL. VSS, PATIENT REMAINS ON RA WITH O2 SAT >90%. CONDOM CATH IN PLACE DURING THE NIGHT WITH ADEQUATE OUTPUT AND FOLLOWING STRICT I/Os. NO OTHER SIGNIFICANT CHANGES THIS SHIFT, WILL REPORT TO DAY SHIFT RN.
[2022-06-14 10:30] LABS: Anion Gap 7 mmol/L (6-16); Blood Urea Nitrogen 20 mg/dL (8-24); Bun/Creatinine Ratio 38.4 (12.0-20.0); CO2, Blood 30 mmol/L (21-32); Calcium, Blood 9.5 mg/dL (8.5-10.1); Chloride, Blood 96 mmol/L (98-108); Creatinine, Blood 0.52 mg/dL (0.60-1.20); Glomerular Filtration Rate 103 (60-); Glucose, Blood 104 mg/dL (70-99); Potassium, Blood 3.9 mmol/L (3.5-5.5); Sodium, Blood 133 mmol/L (136-145)
[2022-06-14] MEDS ORDERED: Demeclocycline300 MG PO (11:27)
[2022-06-14] MEDS ORDERED: CIPR500 PO (11:27)
[2022-06-14] MEDS ORDERED: LINE600 PO (11:28)
[2022-06-14] MEDS ORDERED: SODCHL1 PO (11:28)
--- NOTE | 2022-06-14 13:18 | NUR ---
DISCHARGE SUMMARY PT WAS TRANSPORTED BY PERSONAL WHEELCHAIR TO PERSONAL VEHICLE IN THE CARE OF THEIR DAUGHTER. DISCHARGE INSTRUCTIONS WERE PROVIDED TO THE PT'S DAUGHTER. ALL QUESTIONS AND CONCERNS WERE ADDRESSED PRIOR TO TRANSPORT. ALL PERSONAL BELONGINGS AND DISCHARGE INSTRUCTIONS WERE IN THE POSSESSION OF THE PT'S DAUGHTER AT THE TIME OF TRANSPORT.
== END 2022-06-14 13:02 | disposition home health service (06) | DRG 644 ==
LOC: PCU 12:52
PROVIDERS: Internal Medicine Nephrology; ADMIT Internal Medicine
DX: E22.2 Syndrome of inappropriate secretion of antidiuretic hormone (principal); N39.0 Urinary tract infection, site not specified; Z66 Do not resuscitate; F03.90 Unspecified dementia, unspecified severity, without behavioral disturbance, psychotic disturbance, mood disturbance, and anxiety; E78.5 Hyperlipidemia, unspecified; N40.0 Benign prostatic hyperplasia without lower urinary tract symptoms; J43.9 Emphysema, unspecified; F17.210 Nicotine dependence, cigarettes, uncomplicated; F32.A Depression, unspecified; Z90.49 Acquired absence of other specified parts of digestive tract; Z88.8 Allergy status to other drugs, medicaments and biological substances; Z79.51 Long term (current) use of inhaled steroids; Z79.899 Other long term (current) drug therapy
CPT/HCPCS: 36415; 71045; 80048; 80053; 80069; 83735; 83930; 83935; 84300; 85025; 97110; 97116; 97162; 97166; 97530; 97535; A9270; J1650; J7030

== ENCOUNTER → 2022-06-20 | Outpatient (CLI) | payer OTHER ==
[~2022-06-20] MED LIST changes: +CIPR500 PO; +Demeclocycline300 MG PO; +LINE600 PO; +SODCHL1 PO
== END | disposition home or self-care (01) ==
DX: N39.0 Urinary tract infection, site not specified (principal)

== ENCOUNTER → 2022-09-26 | Outpatient (CLI) | payer OTHER | LOC: LAB 16:55 → LAB SHORT 16:55 | DX: L02.31 Cutaneous abscess of buttock (principal) | CPT/HCPCS: 87070; 87075; 87077; 87147; 87186; 87205 ==

== ENCOUNTER → 2024-07-05 | Outpatient (CLI) | payer OTHER ==
[2024-07-05 15:20] LABS: BASOPHILS ABSOLUTE AUTO 0.03 K/mm3 (0.00-0.23); BASOPHILS PERCENT AUTO 0 % (0-2); EOSINOPHILS PERCENT AUTO 3 % (0-6); Hematocrit 43.8 % (37.0-53.0); Hemoglobin 15.2 g/dL (13.5-17.5); IMMATURE GRAN ABSOLUTE AUTO 0.02 K/mm3 (0.00-0.10); IMMATURE GRAN PERCENT AUTO 0 % (0-1); MONOCYTES PERCENT AUTO 10 % (4-13); Mean Corpuscular HGB 34.2 pg (26.0-34.0); Mean Corpuscular HGB Conc 34.7 g/dL (31.5-36.5); Mean Corpuscular Volume 99 fL (80-100); Mean Platelet Volume 8.7 fL (9.1-12.4); Platelet Count 212 K/mm3 (150-400); RDW Coefficient Variation 12.6 % (11.7-14.2); RDW Standard Deviation 45.5 fL (35.1-46.3); Red Blood Cell Count 4.44 M/mm3 (4.30-5.90); White Blood Cell Count 7.64 K/mm3 (4.00-11.30)
[2024-07-05 15:30] LABS: Bun/Creatinine Ratio 17.4 (12.0-20.0); Calcium, Blood 9.3 mg/dL (8.5-10.1); Creatinine, Blood 0.86 mg/dL (0.60-1.20); Potassium, Blood 3.9 mmol/L (3.5-5.5)
[2024-07-05 15:51] LABS: EOSINOPHILS ABSOLUTE AUTO 0.22 K/mm3 (0.00-0.68); LYMPHOCYTES ABSOLUTE AUTO 1.32 K/mm3 (0.84-5.20); LYMPHOCYTES PERCENT AUTO 17 % (21-46); MONOCYTES ABSOLUTE AUTO 0.81 K/mm3 (0.16-1.47); NEUTROPHILS ABSOLUTE AUTO 5.52 K/mm3 (1.96-9.15); NEUTROPHILS PERCENT AUTO 70 % (41-73)
== END ==
LOC: LAB 15:16 → LAB SHORT 15:16
PROVIDERS: Physician Assistant Surgical
DX: M79.89 Other specified soft tissue disorders (principal)
CPT/HCPCS: 80048; 83880; 85025

== ENCOUNTER → 2024-07-15 | Outpatient (CLI) | payer OTHER | END | disposition home or self-care (01) | LOC: LAB 13:20 → LAB SHORT 13:20 | DX: R30.0 Dysuria (principal) | CPT/HCPCS: 87077; 87086; 87186 ==

== ENCOUNTER 2024-07-25 16:39 | Emergency (ER) | payer OTHER ==
[~2024-07-25] VITALS: Ht 190.5 cm; Wt 63.5 kg
[2024-07-25 17:43] LABS: BASOPHILS ABSOLUTE AUTO 0.03 K/mm3 (0.00-0.23); BASOPHILS PERCENT AUTO 0 % (0-2); EOSINOPHILS ABSOLUTE AUTO 0.07 K/mm3 (0.00-0.68); EOSINOPHILS PERCENT AUTO 1 % (0-6); Hematocrit 39.5 % (37.0-53.0); Hemoglobin 13.8 g/dL (13.5-17.5); IMMATURE GRAN ABSOLUTE AUTO 0.01 K/mm3 (0.00-0.10); IMMATURE GRAN PERCENT AUTO 0 % (0-1); LYMPHOCYTES PERCENT AUTO 13 % (21-46); MONOCYTES ABSOLUTE AUTO 0.87 K/mm3 (0.16-1.47); MONOCYTES PERCENT AUTO 13 % (4-13); Mean Corpuscular HGB 34.4 pg (26.0-34.0); Mean Corpuscular HGB Conc 34.9 g/dL (31.5-36.5); Mean Corpuscular Volume 99 fL (80-100); Mean Platelet Volume 8.4 fL (9.1-12.4); NEUTROPHILS ABSOLUTE AUTO 5.07 K/mm3 (1.96-9.15); NEUTROPHILS PERCENT AUTO 73 % (41-73); Platelet Count 245 K/mm3 (150-400); RDW Coefficient Variation 13.1 % (11.7-14.2); RDW Standard Deviation 47.5 fL (35.1-46.3); Red Blood Cell Count 4.01 M/mm3 (4.30-5.90); White Blood Cell Count 6.95 K/mm3 (4.00-11.30)
[2024-07-25 18:01] LABS: Albumin, Blood 3.6 g/dL (3.4-5.0); Albumin/Globulin Ratio 1.2 (0.8-1.8); Bun/Creatinine Ratio 23.7 (12.0-20.0); Calcium, Blood 9.2 mg/dL (8.5-10.1); Creatinine, Blood 0.63 mg/dL (0.60-1.20); Potassium, Blood 3.8 mmol/L (3.5-5.5); Total Protein, Blood 6.6 g/dL (6.4-8.2)
[2024-07-25 19:25] LABS: Source, Urine Clean Catch
[2024-07-25 19:29] LABS: Appearance, Urine Clear (Clear); Bilirubin, Urine Neg (Neg); Blood, Urine Neg (Neg); Color, Urine Yellow (P-Yellow); Glucose Qualitative, Urine Neg (Neg); Ketones, Urine Neg (Neg); Leukocyte Esterase, Urine Neg (Neg); Nitrite, Urine Neg (Neg); Protein, Urine Neg (Neg); Urobilinogen, Urine NORM (Normal)
[2024-07-26] VITALS: BP 121/72
== END 2024-07-26 00:37 | disposition home or self-care (01) ==
LOC: ER 16:39
PROVIDERS: Physician Assistant
DX: R41.0 Disorientation, unspecified (principal); R42 Dizziness and giddiness; R53.1 Weakness; T43.595A Adverse effect of other antipsychotics and neuroleptics, initial encounter; Z91.09 Other allergy status, other than to drugs and biological substances; F17.210 Nicotine dependence, cigarettes, uncomplicated; Z79.899 Other long term (current) drug therapy
CPT/HCPCS: 70450; 80053; 81003; 85025; 93005; 93010; 99285-25

== ENCOUNTER 2024-12-09 08:31 | Emergency (ER) | payer OTHER ==
[~2024-12-09] VITALS: Ht 190.5 cm; Wt 72.6 kg
[2024-12-09] MEDS ORDERED: Lactated Ringer's 1,000 ML IV ONE ×2 (09:15→09:20)
[2024-12-09 09:35] LABS: Source, Urine Clean Catch
[2024-12-09 09:38] LABS: BASOPHILS ABSOLUTE AUTO 0.02 K/mm3 (0.00-0.23); BASOPHILS PERCENT AUTO 0 % (0-2); EOSINOPHILS PERCENT AUTO 0 % (0-6); Hematocrit 40.2 % (37.0-53.0); Hemoglobin 14.6 g/dL (13.5-17.5); IMMATURE GRAN ABSOLUTE AUTO 0.02 K/mm3 (0.00-0.10); IMMATURE GRAN PERCENT AUTO 0 % (0-1); LYMPHOCYTES ABSOLUTE AUTO 0.58 K/mm3 (0.84-5.20); LYMPHOCYTES PERCENT AUTO 5 % (21-46); MONOCYTES PERCENT AUTO 8 % (4-13); Mean Corpuscular HGB 35.4 pg (26.0-34.0); Mean Corpuscular HGB Conc 36.3 g/dL (31.5-36.5); Mean Corpuscular Volume 97 fL (80-100); Mean Platelet Volume 8.8 fL (9.1-12.4); NEUTROPHILS ABSOLUTE AUTO 9.47 K/mm3 (1.96-9.15); NEUTROPHILS PERCENT AUTO 86 % (41-73); Platelet Count 205 K/mm3 (150-400); RDW Coefficient Variation 12.7 % (11.7-14.2); RDW Standard Deviation 45.1 fL (35.1-46.3); Red Blood Cell Count 4.13 M/mm3 (4.30-5.90); White Blood Cell Count 10.99 K/mm3 (4.00-11.30)
[2024-12-09 09:39] LABS: Appearance, Urine Clear (Clear); Bilirubin, Urine Neg (Neg); Blood, Urine 2+ (Neg); Color, Urine Yellow (P-Yellow); Glucose Qualitative, Urine Neg (Neg); Ketones, Urine 2+ (Neg); Leukocyte Esterase, Urine Neg (Neg); Nitrite, Urine Neg (Neg); Protein, Urine 2+ (Neg); Urobilinogen, Urine 1+ (Normal)
[2024-12-09 09:47] LABS: Mucus Light (0-Heavy); White Blood Cells, Urine 0-2 /hpf (0-5)
[2024-12-09 09:48] LABS: Bacteria Few /hpf; Squamous Epithelial Cells Rare /hpf (Few)
[2024-12-09 09:56] LABS: Albumin, Blood 3.6 g/dL (3.4-5.0); Albumin/Globulin Ratio 1.2 (0.8-1.8); Bilirubin, Total 1.6 mg/dL (0.1-1.0); Bun/Creatinine Ratio 36.1 (12.0-20.0); Calcium, Blood 9.2 mg/dL (8.5-10.1); Creatinine, Blood 0.47 mg/dL (0.60-1.20); Globulin, Blood 3.1 g/dL (2.2-4.0); Potassium, Blood 3.9 mmol/L (3.5-5.5); Total Protein, Blood 6.7 g/dL (6.4-8.2)
[2024-12-09] MEDS ORDERED: PRED FORTE5 M1 (10:09)
[2024-12-09] MEDS ORDERED: Acetaminophen 325 MG TABLET PO ONE (10:45)
[2024-12-09] MEDS ORDERED: Ketorolac Tromethamine 30mg Vial IV ONE (12:00)
[2024-12-10] MEDS ORDERED: PRED FORTE5 M1 BOTHEYES (09:30)
[2024-12-10] MEDS ORDERED: PrednisoLONE 1% Opth Susp 5 ML BOTHEYES ONE (09:35)
[2024-12-10 10:17] VITALS: BP 137/69
== END 2024-12-10 14:29 | disposition home or self-care (01) ==
LOC: ER 08:31
PROVIDERS: Emergency Medicine
DX: R07.81 Pleurodynia (principal); R53.1 Weakness; R53.81 Other malaise; W19.XXXA Unspecified fall, initial encounter
CPT/HCPCS: 70450; 71101; 80053; 81001; 82550; 84484; 85025; 97161; 97530; A9270; J1885; J7120